=== PATIENT | female | born 1995 | race Caucasian/White ===

== ENCOUNTER 2017-06-23 09:33 | Emergency (ER) | payer OTHER ==
[2017-06-23 09:44] VITALS: TEMP 98.5; BMI 38.2
--- NOTE | 2017-06-23 10:05 | PDOC ---
History of Present Illness - General Chief Complaint: Pain Stated Complaint: HEADACHE Time Seen by Provider: 06/23/17 10:05 - History of Present Illness Initial Comments: 06/23/17 10:15 Ms. Siegel is a 22 yo female w/ no pmh who presents with 2-3 week history of left sided headache. She says that it is centered over her left eye and moves through the left side of her head. She describes it as dull in character but says that it is occasionally stabbing as well. She also reports it radiates to her left neck and shoulder. Family is concerned as father in september of a sudden aneurysm. Allergies: NKDA Past History - Past Medical History Allergies/Adverse Reactions: Allergies Allergy/AdvReac Type Severity Reaction Status Date / Time No Known Allergies Allergy Verified 06/23/17 11:04 Home Medications: Ambulatory Orders Norgestimate-Ethinyl Estradiol [Sprintec 28 Day Tablet] 1 each PO DAILY COPD: No Other medical history: NONE - Suicide/Smoking/Psychosocial Hx Smoking History: Never smoked Hx Alcohol Use: No Drug/Substance Use Hx: No Review of Systems - Review of Systems Comments:: 06/23/17 10:19 GENERAL/CONSTITUTIONAL: No fever or chills. No weakness. HEAD, EYES, EARS, NOSE AND THROAT: No change in vision. No ear pain or discharge. No sore throat. CARDIOVASCULAR: No chest pain or shortness of breath RESPIRATORY: No cough, wheezing, or hemoptysis. GASTROINTESTINAL: No nausea, vomiting, diarrhea or constipation. GENITOURINARY: No dysuria, frequency, or change in urination. MUSCULOSKELETAL: No joint or muscle swelling or pain. No neck or back pain. SKIN: No rash NEUROLOGIC: +Headache as described, no vertigo, loss of consciousness, or change in strength/sensation. ENDOCRINE: No increased thirst. No abnormal weight change HEMATOLOGIC/LYMPHATIC: No anemia, easy bleeding, or history of blood clots. ALLERGIC/IMMUNOLOGIC: No hives or skin allergy. *Physical Exam - Vital Signs Last Vital Signs Temp Pulse Resp BP Pulse Ox 98.5 F 108 H 20 134/87 100 06/23/17 09:40 06/23/17 09:40 06/23/17 09:40 06/23/17 09:40 06/23/17 09:40 - Physical Exam Comments: 06/23/17 10:20 GENERAL: Awake, alert, and fully oriented, in no acute distress HEAD: No signs of trauma, normocephalic, atraumatic EYES: +Left sided photophobia. PERRLA, EOMI, sclera anicteric, conjunctiva clear ENT: Auricles normal inspection, hearing grossly normal, nares patent, oropharynx clear without exudates. Moist mucosa NECK: Normal ROM, supple, no lymphadenopathy, JVD, or masses LUNGS: No distress, speaks full sentences, clear to auscultation bilaterally HEART: Regular rate and rhythm, normal S1 and S2, no murmurs, rubs or gallops, peripheral pulses normal and equal bilaterally. ABDOMEN: Soft, nontender, normoactive bowel sounds. No guarding, no rebound. No masses EXTREMITIES: Normal inspection, Normal range of motion, no edema. No clubbing or cyanosis. NEUROLOGICAL: Cranial nerves II through XII grossly intact. Normal speech, normal gait, no focal sensorimotor deficits SKIN: Warm, Dry, normal turgor, no rashes or lesions noted. ED Treatment Course - LABORATORY CBC & Chemistry Diagram: 06/23/17 10:45 06/23/17 10:45 Medical Decision Making - Medical Decision Making 06/23/17 12:03 Patient presents w/ migraine symptoms; acutely worried about aneurysm as father this past spring from sudden brain aneurysm. Scheduled for outpatient Head CT, will get in ER for evaluation. 06/23/17 13:[address] negative, patient feels much better after 1 L fluids and reglan. Patient will follow-up with PCP; Head CT read given to patient for records. *DC/Admit/Observation/Transfer Diagnosis at time of Disposition: Headache Qualifiers: Headache type: tension-type Headache chronicity pattern: acute headache Intractability: not intractable Qualified Code(s): G44.209 - Tension-type headache, unspecified, not intractable - Discharge Dispostion Disposition: HOME - Referrals Referrals: Antoine Lui MD [Primary Care Provider] - - Patient Instructions Printed Discharge Instructions: DI for Migraine Additional Instructions: Please return if any increase in pain or pain not controllable with over the counter medications. - Post Discharge Activity
[2017-06-23] MEDS ORDERED: SODIUM CHLORIDE 1,000 ML IV STA (10:21)
[2017-06-23] MEDS ORDERED: METOCLOPRAMIDE HCL INJECTION 10 MG/2 ML VIAL IVPUSH ONE (10:21)
--- NOTE | 2017-06-23 10:40 | PDOC ---
Attending Attestation - Resident Resident Name: Dilip Yanes - ED Attending Attestation I have performed the following: I have examined & evaluated the patient, The case was reviewed & discussed with the resident, I agree w/resident's findings & plan, Exceptions are as noted - HPI HPI: 06/23/17 10:37 22-year-old female with a history of headaches presents with 3 weeks of a left- sided headache. Patient reports the headache began gradually and has slowly become worse over the last 3 weeks. She reports the headache is constant and located on the left religion and radiates back the left side of her scalp. She reports due to progression of the headache over the last week she came in to be seen today. The patient is concerned about aneurysm because her father of a brain aneurysm in September 2016. She's had similar headaches in the past that have resolved more quickly. She's tried ibuprofen for her headache with minimal improvement. She denies any visual symptoms. She feels like the left side of her face feels different. She denies any focal weakness or numbness elsewhere. She does not know a temporal relation of the headache and states it's constant all day. The patient was uninsured do to losing her father's insurance but now has Medicaid. Denies any fevers, stiff neck, rashes. Denies chest pain, shortness of breath, abdominal pain. Denies nausea, vomiting, diarrhea. She reports photophobia - Physicial Exam PE: 06/23/17 14:04 GENERAL: Awake, alert, and fully oriented, in no acute distress HEAD: No signs of trauma EYES: PERRLA, EOMI, sclera anicteric, conjunctiva clear. Normal visual acuity. Covering eyes with hand due to light. ENT: Auricles normal inspection, hearing grossly normal, nares patent, oropharynx clear without exudates. Moist mucosa NECK: Normal ROM, supple, no lymphadenopathy, JVD, or masses LUNGS: Breath sounds equal, clear to auscultation bilaterally. No wheezes, and no crackles HEART: Regular rate and rhythm, normal S1 and S2, no murmurs, rubs or gallops ABDOMEN: Soft, nontender, normoactive bowel sounds. No guarding, no rebound. No masses EXTREMITIES: Normal range of motion, no edema. No clubbing or cyanosis. No cords, erythema, or tenderness NEUROLOGICAL: Normal speech, "different sensation" in V1-V3 distribution on the left, cranial nerves otherwise intact, negative pronator drift, 5/5 strength in all 4 extremities, normal sensation to light touch in all 4 extremities, normal cerebellar exam, normal gait, normal reflexes and tone SKIN: Warm, Dry, normal turgor, no rashes or lesions noted. - Medical Decision Making 06/23/17 11:12 22-year-old female with a history of headaches, has never been worked up by neurologist presents with 3 weeks of headache. Vitals are unremarkable. Exam is normal other than V1-V3 sensory abnormality. Given the gradual onset of the headache, the left-sided nature of the headache and the throbbing nature, this is likely a complicated migraine given different sensation in V1-V3. Although patient is concerned that this is an aneurysm, it is unlikely as this was not a thunderclap headache and the patient is neurologically intact (other than "different sensation") . There is also unlikely to be aneurysmal as the patient has had a headache for 3 weeks and its gradually getting worse, not worse at onset. Also possibly tension headache, but one sided nature argues against this. Due to abnormal sensation in V1-V3, will obtain a CTH more so for peace of mind given recent of her father although the patient is aware that this is not likely to be diagnostic or reveal an etiology of her headache. Otherwise will given headache cocktail for pain. 06/23/17 14:25 Patient feels much better after IV fluids, Reglan, and magnesium. Labs and CT of the head are normal. Heart rate is 78. Discussed all findings with patient will follow up with neurology. I discussed the physical exam findings, ancillary test results and final diagnoses with the patient. I answered all of the patient's questions. The patient was satisfied with the care received and felt comfortable with the discharge plan and treatment plan. The patient will call their primary care physician within 24 hours to arrange follow-up and will return to the Emergency Department with any new, persistent or worsening symptoms.
[2017-06-23] MEDS ORDERED: METOCLOPRAMIDE HCL INJECTION 10 MG/2 ML VIAL ONE (10:52)
[2017-06-23 10:54] LABS: BASOPHIL 0.8 % (0-2.0); MCHC 32.7 g/dl (32.0-36.0); MEAN CELL VOLUME 85.5 fl (80-96); MEAN PLT VOLUME 7.1 fl (7.5-11.1); NEUTROPHILS 57.7 % (42.8-82.8); PLATELET COUNT 367 K/MM3 (134-434); RDW 13.5 % (11.6-15.6); WHITE BLOOD COUNT 12.8 K/mm3 (4.0-10.0)
[2017-06-23 11:24] LABS: ALBUMIN 3.6 g/dl (3.4-5.0); ANION GAP 6 (8-16); BILIRUBIN,TOTAL 0.3 mg/dL (0.2-1.0); CALCIUM 8.6 mg/dL (8.5-10.1); CO2 25 mmol/L (21-32); CREATININE 0.6 mg/dL (0.55-1.02); GLUCOSE,RANDOM 90 mg/dL (74-106); SGOT/AST 22 U/L (15-37); SGPT/ALT 62 U/L (12-78); TOT PROT 7.3 g/dl (6.4-8.2)
[2017-06-23 11:25] LABS: ALK PHOS 83 U/L (45-117)
[2017-06-23] MEDS ORDERED: MAGNESIUM SULF 50% (8.12 MEQ/2 ML-1 GM VIAL) IVPB ONE (12:40)
[2017-06-23] MEDS ORDERED: MAGNESIUM SULF 50% (8.12 MEQ/2 ML-1 GM VIAL) ONE (12:45)
[2017-06-23 13:57] VITALS: BP 99/71; PULSE 73
== END 2017-06-23 14:02 | disposition home or self-care (01) ==
LOC: JER 09:33
PROC: 3E0337Z Introduction of Electrolytic and Water Balance Substance into Peripheral Vein, Percutaneous Approach (ICD-10-PCS; principal; 2017-06-23)
PROC: 3E033GC Introduction of Other Therapeutic Substance into Peripheral Vein, Percutaneous Approach (ICD-10-PCS; 2017-06-23)
DX: G44.209 Tension-type headache, unspecified, not intractable (principal)
CPT/HCPCS: 36415; 70450-TC; 80053; 84703; 85025; 99282-25

== ENCOUNTER 2020-07-24 22:52 | Emergency (ER) | payer OTHER ==
[2020-07-24 23:02] VITALS: BP 112/58; PULSE 61; TEMP 99.6; BMI 36.2
[2020-07-25 01:08] LABS: BASO % 0.4 % (0-2.0); EOS % 2.1 % (0-4.5); HEMATOCRIT 39.6 % (32.4-45.2); LYMPH % 29.3 % (8-40); MCH 29.6 pg (25.7-33.7); MCHC 32.8 g/dl (32.0-36.0); MEAN CELL VOLUME 90.2 fl (80-96); MEAN PLT VOLUME 7.7 fl (7.5-11.1); MONO % 5.7 % (3.8-10.2); NEUT % 62.5 % (42.8-82.8); PLATELET COUNT 387 K/MM3 (134-434); RBC 4.39 M/mm3 (3.60-5.2)
[2020-07-25 01:17] LABS: INR 1.04 (0.83-1.09); PROTHROMBIN TIME (PATIENT) 12.8 SEC (9.7-13.0)
[2020-07-25 01:47] LABS: CHLORIDE 108 mmol/L (98-107)
[2020-07-25 01:50] LABS: ALBUMIN 3.6 g/dl (3.4-5.0); BLOOD UREA NITROGEN 11.8 mg/dL (7-18); CALCIUM 8.6 mg/dL (8.5-10.1); CO2 25 mmol/L (21-32); GLUCOSE,RANDOM 78 mg/dL (74-106)
[2020-07-25 01:53] LABS: CREATININE 0.6 mg/dL (0.55-1.3); SGOT/AST 13 U/L (15-37)
[2020-07-25 01:55] LABS: BILIRUBIN,TOTAL 0.4 mg/dL (0.2-1); TOT PROT 7.4 g/dl (6.4-8.2)
[2020-07-25 01:56] LABS: ALK PHOS 77 U/L (45-117)
[2020-07-25 02:01] LABS: ANION GAP 7 MMOL/L (8-16); SGPT/ALT 25 U/L (13-61); SODIUM 140 mmol/L (136-145)
== END 2020-07-25 02:21 | disposition home or self-care (01) ==
LOC: FER 22:52
DX: R07.89 Other chest pain (principal)
CPT/HCPCS: 36415; 80053; 82550; 84484; 84703; 85025; 85379; 85610; 93005; 99284-25

== ENCOUNTER 2021-06-28 12:11 | Emergency (ER) | payer OTHER ==
[2021-06-28 12:29] VITALS: BP 137/81; PULSE 80; TEMP 99.1; BMI 34.2
[2021-06-28 13:18] LABS: HCG,QUALITATIVE URINE Negative
[2021-06-28 13:24] LABS: BASO % 3.3 % (0-2.0); EOS % 1.5 % (0-4.5); HEMATOCRIT 40.2 % (32.4-45.2); HEMOGLOBIN 13.1 GM/dl (10.7-15.3); LYMPH % 30.9 % (8-40); MCH 29.6 pg (25.7-33.7); MCHC 32.6 g/dl (32.0-36.0); MEAN CELL VOLUME 90.8 fl (80-96); MEAN PLT VOLUME 7.6 fl (7.5-11.1); MONO % 4.5 % (3.8-10.2); NEUT % 59.8 % (42.8-82.8); PLATELET COUNT 401 10^3/uL (134-434); RBC 4.43 M/mm3 (3.60-5.2); RDW 13.1 % (11.6-15.6); WHITE BLOOD COUNT 11.4 K/mm3 (4.0-10.8)
[2021-06-28 13:42] LABS: ALBUMIN 3.8 g/dl (3.4-5.0); BILIRUBIN,TOTAL 0.3 mg/dl (0.2-1); CALCIUM 9.2 mg/dl (8.5-10); CREATININE 0.7 mg/dl (0.55-1.3); TOT PROT 7.5 g/dl (6.4-8.2)
== END 2021-06-28 15:26 | disposition home or self-care (01) ==
LOC: FER 12:11
PROC: 3E033NZ Introduction of Analgesics, Hypnotics, Sedatives into Peripheral Vein, Percutaneous Approach (ICD-10-PCS; principal; 2021-06-28)
PROC: 3E033GC Introduction of Other Therapeutic Substance into Peripheral Vein, Percutaneous Approach (ICD-10-PCS; 2021-06-28)
PROC: 3E0337Z Introduction of Electrolytic and Water Balance Substance into Peripheral Vein, Percutaneous Approach (ICD-10-PCS; 2021-06-28)
DX: N93.9 Abnormal uterine and vaginal bleeding, unspecified (principal)
CPT/HCPCS: 36415; 76830-TC; 80053; 81003; 81015; 84703; 85025; 86850; 86900; 86901; 87086; 96361; 96374; 96375; 99284-25